=== PATIENT | female | born 1960 | race Two or more races ===

== ENCOUNTER 2017-10-04 20:08 | Emergency (ER) | payer OTHER ==
[2017-10-04 20:15] VITALS: O2SAT 96
--- NOTE | 2017-10-04 20:26 | EDPHY ---
H & P Stated Complaint: rt ear injury Time Seen by Provider: 10/04/17 20:19 HPI/ROS: CHIEF COMPLAINT: Laceration right ear HISTORY OF PRESENT ILLNESS: Patient is a 56-year-old female who was hugging her [id number] and they are in brings internal locked and tore out her loop hearing. She has a through and through laceration to her right earlobe. No other injuries. REVIEW OF SYSTEMS: Constitutional: denies: chills, fever, recent illness, recent injury EENTM: See HPI Respiratory: denies: cough, shortness of breath Cardiac: denies: chest pain, irregular heart rate, lightheadedness, palpitations Gastrointestinal/Abdominal: denies: abdominal pain, diarrhea, nausea, vomiting, blood streaked stools Genitourinary: denies: dysuria, frequency, hematuria, pain Musculoskeletal: denies: joint pain, muscle pain Skin: denies: lesions, rash, jaundice, bruising Neurological: denies: headache, numbness, paresthesia, tingling, dizziness, weakness Hematologic/Lymphatic: denies: blood clots, easy bleeding, easy bruising Immunologic/allergic: denies: HIV/AIDS, transplant EXAM: GENERAL: Well-appearing, well-nourished and in no acute distress. HEAD: Atraumatic, normocephalic. EYES: Pupils equal round and reactive to light, extraocular movements intact, sclera anicteric, conjunctiva are normal. ENT: Through and through laceration to right earlobe approximately 2 cm length total. No cartilaginous involvement. NECK: Normal range of motion, supple without lymphadenopathy or JVD. LUNGS: Breath sounds clear to auscultation bilaterally and equal. No wheezes rales or rhonchi. HEART: Regular rate and rhythm without murmurs, rubs or gallops. ABDOMEN: Soft, nontender, normoactive bowel sounds. No guarding, no rebound. No masses appreciated. BACK: No CVA tenderness, no spinal tenderness, step-offs or deformities EXTREMITIES: Normal range of motion, no pitting or edema. No clubbing or cyanosis. NEUROLOGICAL: Cranial nerves II through XII grossly intact. Normal speech, normal gait. 5/5 strength, normal movement in all extremities, normal sensation PSYCH: Normal mood, normal affect. SKIN: Warm, dry, normal turgor, no visible rashes or lesions. Source: Patient Exam Limitations: No limitations - Personal History Current Tetanus/Diphtheria Vaccine: Unsure Current Tetanus Diphtheria and Acellular Pertussis (TDAP): Unsure - Medical/Surgical History Hx Asthma: Yes Hx Chronic Respiratory Disease: No Hx Diabetes: No Hx Cardiac Disease: No Hx Renal Disease: No Hx Cirrhosis: No Hx Alcoholism: No Hx HIV/AIDS: No Hx Splenectomy or Spleen Trauma: No Other PMH: MIGRANES , KIDNEY STONES. htn, asthma - Family History Significant Family History: No pertinent family hx - Social History Smoking Status: Current every day smoker Alcohol Use: Sober Drug Use: None Constitutional: Initial Vital Signs Temperature (C) 36.9 C 10/04/17 20:11 Heart Rate 90 10/04/17 20:11 Respiratory Rate 18 10/04/17 20:11 Blood Pressure 181/115 H 10/04/17 20:11 O2 Sat (%) 96 10/04/17 20:11 O2 Delivery Mode Room Air Allergies/Adverse Reactions: lithium [[place]] Allergy (Severe, Verified 12/24/11 09:17) Other-Enter Comments dihydroergotamine mesylate [From Dhe] Allergy (Intermediate, Verified 12/24/11 09:17) Unknown ketorolac tromethamine [From Toradol] Allergy (Intermediate, Verified 12/24/11 09:17) Hives morphine [Morphine] Adverse Reaction (Mild, Verified 12/24/11 09:17) NAUSEA Home Medications: Medication Instructions Recorded Aspirin [Aspirin 81mg] 81 mg PO DAILY 07/24/10 Pro-Air Inhaler 09/08/10 Atenolol [Atenolol 100 mg] 100 mg PO DAILY 02/10/11 Levothyroxine Sodium [Synthroid] 88 mcg PO 02/10/11 OXYCODONE HCL 5 mg PO 02/10/11 Albuterol Sulfate 2.5 mg IH Q4-6PRN PRN #10 vial 12/24/11 Nebulizer/Compr. For Neb [Home 1 ea MIS AD #1 ea 12/24/11 Nebulizer] Medical Decision Making Procedures: Procedure: Laceration repair. Verbal consent was obtained from the patient. The 2 cm earlobe laceration was anesthetized with 0.5% bupivacaine locally infiltrated. The wound was irrigated copiously according to protocol, draped and explored to its base. There were no deep structures involved. No tendon, nerve, or vascular injury was identified when explored through full range of motion. No foreign body was identified. The wound was repaired with 6.0 fast-absorbing gut, 10 sutures, interrupted. The wound repair was complex with multiple flap realignment. The procedure was performed by myself. A dressing was then placed with sterile gauze. ED Course/Re-evaluation: Patient tolerated the repair well. We discussed care for dissolving sutures. We discussed scarring and repeat piercing. She is happy and declines further workup or testing. Departure - Departure Disposition: Home, Routine, Self-Care Clinical Impression: Laceration of right ear lobe Condition: Fair Instructions: Laceration (ED), Care For Your Absorbable Stitches (ED) Referrals: Rylie Sibley DO [Doctor of Osteopathy] - As per Instructions
[2017-10-04] MEDS ORDERED: TDAP ADULT 0.5 ML INJ (BOOSTRIX) IM ONE (21:13)
[2017-10-04 21:29] VITALS: BP 168/108; PULSE 88; RESP 16; TEMP 98.2
== END 2017-10-04 21:29 | disposition home or self-care (01) ==
LOC: CED 20:08
PROC: 09Q0XZZ Repair Right External Ear, External Approach (ICD-10-PCS; principal; 2017-10-04)
DX: S01.311A Laceration without foreign body of right ear, initial encounter (principal); J45.909 Unspecified asthma, uncomplicated; I10 Essential (primary) hypertension; F17.200 Nicotine dependence, unspecified, uncomplicated; Z23 Encounter for immunization; Z79.82 Long term (current) use of aspirin; X58.XXXA Exposure to other specified factors, initial encounter

== ENCOUNTER → 2017-12-16 | Outpatient (CLI) | payer OTHER | LOC: CIMAGING 11:39 | PROVIDERS: ATTEND Family Medicine | DX: M25.511 Pain in right shoulder (principal) | CPT/HCPCS: 73030-PO ==